=== PATIENT | female | born 1930 | race Caucasian/White ===

== ENCOUNTER → 2016-08-05 | Outpatient (CLI) | payer MEDICARE, BC ==
[2016-08-05 10:53] LABS: ABSOLUTE EOSINOPHILS # (AUTO) 0.2 10^3/uL (0.0-0.6); ABSOLUTE LYMPHOCYTES (AUTO) 0.8 10^3/uL (0.5-4.7); ABSOLUTE MONOCYTES (AUTO) 0.8 10^3/uL (0.1-1.4); ABSOLUTE NEUT (AUTO) 4.7 10^3/uL (1.7-8.2); BASOPHILS % (AUTO) 0.5 % (0-2); EOSINOPHILS % (AUTO) 2.5 % (0-6); HEMATOCRIT 32.8 % (36.0-47.0); HEMOGLOBIN 11.2 g/dL (12.0-15.5); HGB HCT DIFFERENCE 0.8; LYMPHOCYTES % (AUTO) 12.5 % (13-45); MEAN CORPUSCULAR HEMOGLOBIN 30.7 pg (27.0-33.4); MEAN CORPUSCULAR VOLUME 90 fl (80-97); MONOCYTES % (AUTO) 11.8 % (3-13); RED BLOOD COUNT 3.64 10^6/uL (3.72-5.28); RED CELL DISTRIBUTION WIDTH 13.7 % (11.5-14.0); SEGMENTED NEUTROPHILS % (AUTO) 72.7 % (42-78); WHITE BLOOD COUNT 6.5 10^3/uL (4.0-10.5)
[2016-08-05 11:20] LABS: ALANINE AMINOTRANSFERASE 50 U/L (9-52); ALBUMIN 4.1 g/dL (3.5-5.0); ALKALINE PHOSPHATASE 93 U/L (38-126); ANION GAP 8 (5-19); ASPARTATE AMINO TRANSFERASE 54 U/L (14-36); BILIRUBIN,TOTAL 0.5 mg/dL (0.2-1.3); BLOOD UREA NITROGEN 22 mg/dL (7-20); CALCIUM 9.8 mg/dL (8.4-10.2); CARBON DIOXIDE 31 mmol/L (22-30); CHLORIDE 102 mmol/L (98-107); GLUCOSE 107 mg/dL (75-110); POTASSIUM 4.1 mmol/L (3.6-5.0); SODIUM 141.1 mmol/L (137-145); TOTAL PROTEIN 7.1 g/dL (6.3-8.2)
== END ==
LOC: OD 09:57
PROVIDERS: ATTEND Surgery
DX: C50.919 Malignant neoplasm of unspecified site of unspecified female breast (principal)
CPT/HCPCS: 36415; 71020; 80053; 85025

== ENCOUNTER → 2016-08-08 | Outpatient (CLI) | payer MEDICARE, BC | LOC: RAD 13:11 | PROVIDERS: ATTEND Surgery | DX: C50.911 Malignant neoplasm of unspecified site of right female breast (principal) | CPT/HCPCS: 71250; 74176; 82565 ==

== ENCOUNTER → 2016-08-19 | Outpatient (CLI) | payer MEDICARE, BC | LOC: RAD 12:31 | PROVIDERS: ATTEND Specialist | DX: R05 Cough (principal); Z85.3 Personal history of malignant neoplasm of breast; I51.7 Cardiomegaly | CPT/HCPCS: 71020 ==

== ENCOUNTER → 2016-08-21 | Outpatient (CLI) | payer MEDICARE, BC | LOC: RAD 21:01 | PROVIDERS: ATTEND Internal Medicine | DX: C50.411 Malignant neoplasm of upper-outer quadrant of right female breast (principal) | CPT/HCPCS: 78815; A9552 ==

== ENCOUNTER → 2016-09-08 | Outpatient (CLI) | payer MEDICARE, BC | LOC: RAD 09:33 | PROVIDERS: ATTEND Internal Medicine | DX: J18.9 Pneumonia, unspecified organism (principal) | CPT/HCPCS: 71250 ==

== ENCOUNTER 2016-09-16 08:47 | Day surgery (SDC) | payer MEDICARE, BC ==
[2016-09-07 13:02] LABS: HEMATOCRIT 32.2 % (36.0-47.0); HEMOGLOBIN 11.2 g/dL (12.0-15.5); HGB HCT DIFFERENCE 1.4; MEAN CORPUSCULAR HEMOGLOBIN 31.2 pg (27.0-33.4); MEAN CORPUSCULAR HGB CONC 34.9 g/dL (32.0-36.0); MEAN CORPUSCULAR VOLUME 89 fl (80-97); RED CELL DISTRIBUTION WIDTH 13.4 % (11.5-14.0); WHITE BLOOD COUNT 6.2 10^3/uL (4.0-10.5)
[2016-09-07 13:24] LABS: ANION GAP 13 (5-19); BLOOD UREA NITROGEN 29 mg/dL (7-20); CALCIUM 9.8 mg/dL (8.4-10.2); CARBON DIOXIDE 31 mmol/L (22-30); CHLORIDE 99 mmol/L (98-107); GLUCOSE 109 mg/dL (75-110); SODIUM 142.5 mmol/L (137-145)
[2016-09-07 13:26] LABS: POTASSIUM 4.3 mmol/L (3.6-5.0)
--- NOTE | 2016-09-07 20:06 | EKG REPORT ---
SEVERITY:- ABNORMAL ECG - ATRIAL-PACED COMPLEXES : Confirmed by: Elizabeth Duong MD 07-Sep-2016 20:04:43
[~2016-09-16 08:47] MED LIST: ACETAMINOPHEN 325 MG TABLET PO PRN; CEFAZOLIN 1 GM/D5W RTU 1 GM/50 ML RTUPB IV PRN; LIDOCAINE 0.5% INJ-PF (5 MG/ML) 50 ML SDV SUBCUT PRN; LIDOCAINE 2% INJ-PF (20 MG/ML) 10 ML AMPUL ONE; LIDOCAINE 4% TRANSPARENT DRESSING 5 GM KIT TP PRN; NORMAL SALINE 1000 ML (RENAL PATIENTS) IV PRN
[2016-09-16] MEDS ORDERED: METHYLENE BLUE/PF INJ 100 MG/10 ML SDV ONE (09:28)
[2016-09-16] MEDS ORDERED: HYDROMORPHONE HCL INJ/PF 2 MG/ML AMPULE ONE (09:42)
[2016-09-16] MEDS ORDERED: FENTANYL CITRATE INJ/PF 100 MCG/2 ML AMPUL ONE (09:43)
[2016-09-16] MEDS ORDERED: MIDAZOLAM 2 MG/2 ML INJ ONE (09:43)
[2016-09-16] MEDS ORDERED: ACETAMINOPHEN 100 ML IV ONE (09:43)
[2016-09-16] MEDS ORDERED: PROPOFOL INJ 200 MG/20 ML VIAL IV ONE (09:43)
[2016-09-16] MEDS ORDERED: KETAMINE HCL INJ 500 MG/10 ML VIAL ONE (12:36)
[2016-09-16] MEDS ORDERED: METHYLPREDNISOLONE INJ 125 MG/2 ML SDV ONE (12:38)
[2016-09-16] MEDS ORDERED: DIPHENHYDRAMINE HCL 50 MG/ML VIAL IV PRN (14:11)
[2016-09-16] MEDS ORDERED: PROMETHAZINE HCL INJ 25 MG/1 ML VIAL IV PRN (14:11)
[2016-09-16] MEDS ORDERED: FENTANYL CITRATE INJ/PF 100 MCG/2 ML AMPUL IV PRN ×3 (14:11)
[2016-09-16] MEDS ORDERED: MORPHINE SULFATE 10 MG/ML INJ IV PRN (14:11)
[2016-09-16] MEDS ORDERED: ONDANSETRON HCL INJ/PF 4 MG/2 ML SDV IV PRN (16:40)
--- NOTE | 2016-09-16 16:40 | Operative Report ---
Operative Report DATE OF SURGERY: 09/16/16 PREOPERATIVE DIAGNOSIS: Right breast cancer. POSTOPERATIVE DIAGNOSIS: Right Breast cancer OPERATION: Right mastectomy, injection of blue dye for identification of sentinel node, right axillary sentinel node biopsies, completion right axillary dissection. SURGEON: GUSTAVO PERDOMO ANESTHESIA: GA TISSUE REMOVED OR ALTERED: Right mastectomy. Right axillary sentinel nodes 4. Right axillary dissection. COMPLICATIONS: None ESTIMATED BLOOD LOSS: 200 mL INTRAOPERATIVE FINDINGS: For sentinel nodes harvested. 2 of them demonstrating evidence of metastatic disease by touch prep. PROCEDURE: Informed consent was obtained. Patient had underwent lympho-scintigraphy identification of right axillary sentinel node. She was brought to the operating room placed on the operating table in supine position. After satisfactory induction of general anesthesia, patient's right breast and axilla were prepped and draped in usual sterile fashion. 3 mL of blue dye was injected at the periareolar region. And the breast was massaged for 5 minutes. The cancer resided at the lower inner aspect of the right breast. Ellipse of skin was taken along with the nipple areolar complex taking a wide skin excision overlying the mass medially. Inferior flaps were developed first taking great care to go widely away from the tumor. Superior flaps were then developed followed by lateral flaps extending to the latissimus. The breast was taken off of the pectoralis along with the pectoralis fascia again taking great care to stay deep to the mass that laid medially. The true axilla was entered. Using visualization and the neoprobe for sentinel nodes were identified. The first node was small but it was hot and blue with an in vivo count of 10,427 and ex vivo count of 10,117. The second node was enlarged and hot and blue in vivo count was 7747 with ex vivo count of 9598. 2 other semi- hot nodes were harvested but these were not blue. Node #3 in vivo count was 1000 with an ex vivo count of 1184. Node #4 was 2328 in vivo with 3484 ex vivo count. All of these nodes were submitted to pathology touch prep demonstrated that 2 of these nodes had evidence of metastatic disease. With this finding, right axillary lymph node dissection was performed. Level I and level II nodes were harvested. Critical structures were identified: The axillary vein, the long thoracic nerve and the thoracodorsal nerves. All of the structures were protected during the dissection. Hemostasis appeared excellent. The specimen was submitted to pathology. The mastectomy specimen was oriented with a short stitch marking the superior border long stitch marking the lateral border. Palpation revealed that I had obtained the good gross margins. The axillary dissection was submitted separately. The operative field was irrigated with sterile water. 2 Ky-Freire drains were placed one at the mastectomy site and one at the axillary dissection site both of them exiting at the right lateral lower flap. These drains were sutured in place. Sponge needle instrument counts were all correct. The wound was then closed with the interrupted deep dermal Vicryl sutures followed by staple closure of the skin. Patient tolerated procedure well with no apparent complications and was taken to the recovery area in stable condition.
[2016-09-16] MEDS ORDERED: MELATONIN PO PRN (16:43)
[2016-09-16] MEDS ORDERED: PYRIDOXINE HCL PO PRN (16:43)
[2016-09-16] MEDS ORDERED: PREDNISONE 10 MG PO PRN (16:43)
[2016-09-16] MEDS ORDERED: ALOE VERA PO SCH (18:00)
[2016-09-16] MEDS ORDERED: OMEPRAZOLE PO SCH (18:00)
[2016-09-16] MEDS: OXYCODONE-ACETAMINOPHEN 5-325 MG TABLET PO PRN (21:41)
[2016-09-16] MEDS ORDERED: LANSOPRAZOLE 30 MG TAB.RAP.DR PO SCH (22:00)
[2016-09-17 05:53] LABS: HEMATOCRIT 33.1 % (36.0-47.0); HEMOGLOBIN 11.3 g/dL (12.0-15.5); HGB HCT DIFFERENCE 0.8; MEAN CORPUSCULAR HEMOGLOBIN 30.3 pg (27.0-33.4); MEAN CORPUSCULAR VOLUME 89 fl (80-97); RED BLOOD COUNT 3.71 10^6/uL (3.72-5.28); RED CELL DISTRIBUTION WIDTH 13.7 % (11.5-14.0); WHITE BLOOD COUNT 13.8 10^3/uL (4.0-10.5)
[2016-09-17] MEDS: OXYCODONE-ACETAMINOPHEN 5-325 MG TABLET PO PRN ×2 (06:40→10:59)
[2016-09-17] MEDS ORDERED: LANSOPRAZOLE 15 MG TAB.RAP.DR PO SCH (08:00)
--- NOTE | 2016-09-17 08:24 | PDOC PROGRESS REPORT ---
Subjective Progress Note for:: 09/17/16 Subjective:: Feels well no complaints. Physical Exam Vital Signs: Temp Pulse Resp BP Pulse Ox 97.3 F 60 16 121/88 H 97 09/17/16 01:50 09/17/16 01:50 09/17/16 01:50 09/17/16 01:50 09/17/16 01:50 Intake & Output 09/16/16 09/17/16 09/18/16 06:59 06:59 06:59 Intake Total 3450 Output Total 1915 Balance 1535 Weight 68.3 kg General appearance: PRESENT: no acute distress, cooperative Respiratory exam: PRESENT: clear to auscultation shaista, other - Mastectomy site the without significant swelling pink with no evidence of ischemia. Ky- Freire drain output has blood-tinged the fluid. Cardiovascular exam: PRESENT: RRR GI/Abdominal exam: PRESENT: other Results Laboratory Results: 09/17/16 04:10 09/16/16 09:20 09/16/16 09/17/16 09:20 04:10 WBC 13.8 H RBC 3.71 L Hgb 11.3 L Hct 33.1 L MCV 89 MCH 30.3 MCHC 34.0 RDW 13.7 Plt Count 201 Potassium 4.4 Impressions: Lymph Scan Nuclear Medicine 09/16/16 10:00 IMPRESSION: ADMINISTRATION OF RADIOPHARMACEUTICAL FOR SENTINEL LYMPH NODE EVALUATION. Assessment & Plan - Diagnosis (1) Breast cancer, right breast Qualifiers: Patient sex: female Is this a current diagnosis for this admission?: YesPlan: Status post right modified radical mastectomy. Patient doing well. Will discharge the patient home.
--- NOTE | 2016-09-17 08:53 | DISCHARGE SUMMARY E ---
Discharge Summary NAME: DIANNE SINGH : 1930 AGE: 86Y ADMITTED: 09/16/2016 DISCHARGED: 09/17/2016 DISCHARGE DIAGNOSIS: Right breast cancer. PROCEDURES PERFORMED DURING HOSPITALIZATION: 1. Injection of blue dye for identification of sentinel node. 2. Right mastectomy. 3. Right axillary sentinel node biopsy. 4. Right axillary dissection. All performed on 09/16/2016. HOSPITAL COURSE: Patient underwent the above-mentioned procedures. She did well postoperatively. She was tolerating a diet well. Her mastectomy site looked good. Patient has now been discharged to home in good condition. She will follow up with me next week. Drain instructions were given to the patient. She is to stay active. She is to use her right arm as normally, but keep it elevated when at rest DISCHARGE MEDICATIONS: To resume her home medication with additional medication of Percocet 1 p.o. q.4 h. p.r.n. pain. DICTATING PHYSICIAN: JULIAN PERDOMO M.D. [id number] Y#: [id number] ID: [id number] JOB#: [id number] ACCT: [id number] cc:JULIAN PERDOMO M.D. >
[2016-09-17 09:25] VITALS: BP 154/67
[2016-09-17] MEDS ORDERED: HYDROCHLOROTHIAZIDE 25 MG TABLET PO SCH (10:00)
[2016-09-17] MEDS ORDERED: FUROSEMIDE 20 MG TABLET PO SCH (10:00)
[2016-09-17] MEDS ORDERED: CHLORPHENIRAMINE MALEATE 4 MG TABLET PO SCH (10:00)
[2016-09-17] MEDS ORDERED: ASPIRIN 81 MG TABLET, CHEWABLE PO SCH (10:00)
[2016-09-17] MEDS ORDERED: BISOPROLOL FUMARATE PO SCH (10:00)
[2016-09-17] MEDS ORDERED: (PENDING PHARMACY ID) (Ubidecarenone [Coq-10] 200 MG) PO SCH (10:00)
[2016-09-17] MEDS ORDERED: ATENOLOL 50 MG TABLET PO SCH (10:00)
[2016-09-17] MEDS ORDERED: HCTZ PO SCH (10:00)
== END 2016-09-17 11:38 | disposition home or self-care (01) ==
LOC: OROUT 08:47 → 4N 17:41 → OROUT 09-17 11:38
PROVIDERS: ATTEND Surgery
PROC: 07B50ZX Excision of Right Axillary Lymphatic, Open Approach, Diagnostic (ICD-10-PCS; 2016-09-16)
PROC: 0HTT0ZZ Resection of Right Breast, Open Approach (ICD-10-PCS; principal; 2016-09-16 11:00)
DX: C50.311 Malignant neoplasm of lower-inner quadrant of right female breast (principal); I25.10 Atherosclerotic heart disease of native coronary artery without angina pectoris; I13.0 Hypertensive heart and chronic kidney disease with heart failure and stage 1 through stage 4 chronic kidney disease, or unspecified chronic kidney disease; I50.9 Heart failure, unspecified; N18.9 Chronic kidney disease, unspecified; Z95.0 Presence of cardiac pacemaker; Z87.891 Personal history of nicotine dependence; Z79.899 Other long term (current) drug therapy; Z79.82 Long term (current) use of aspirin; Z88.8 Allergy status to other drugs, medicaments and biological substances; Z88.1 Allergy status to other antibiotic agents; Z98.61 Coronary angioplasty status; Z85.828 Personal history of other malignant neoplasm of skin
CPT/HCPCS: 93005; 36415 ×2; 84132; 85027 ×2; 80048; 88307 ×2; 78195; 93010; 97166; 19307; A9520; A9270 ×6; J0690; J3010; J3490 ×3; Q9968; J2930; J1170; J2704; J0131; G8987; G8988; G8989; 00400; J2250

== ENCOUNTER → 2017-01-26 | Outpatient (CLI) | payer MEDICARE, BC ==
[2017-01-26 15:17] LABS: ABSOLUTE EOSINOPHILS # (AUTO) 0.2 10^3/uL (0.0-0.6); ABSOLUTE LYMPHOCYTES (AUTO) 1.5 10^3/uL (0.5-4.7); ABSOLUTE MONOCYTES (AUTO) 0.5 10^3/uL (0.1-1.4); ABSOLUTE NEUT (AUTO) 3.3 10^3/uL (1.7-8.2); BASOPHILS % (AUTO) 0.6 % (0-2); EOSINOPHILS % (AUTO) 3.5 % (0-6); HEMATOCRIT 34.5 % (36.0-47.0); HEMOGLOBIN 11.7 g/dL (12.0-15.5); HGB HCT DIFFERENCE 0.6; LYMPHOCYTES % (AUTO) 27.1 % (13-45); MEAN CORPUSCULAR HGB CONC 33.8 g/dL (32.0-36.0); MEAN CORPUSCULAR VOLUME 92 fl (80-97); MONOCYTES % (AUTO) 8.4 % (3-13); RED BLOOD COUNT 3.76 10^6/uL (3.72-5.28); RED CELL DISTRIBUTION WIDTH 13.3 % (11.5-14.0); SEGMENTED NEUTROPHILS % (AUTO) 60.4 % (42-78); WHITE BLOOD COUNT 5.5 10^3/uL (4.0-10.5)
[2017-01-26 15:37] LABS: ALANINE AMINOTRANSFERASE 32 U/L (9-52); ALBUMIN 4.3 g/dL (3.5-5.0); ALKALINE PHOSPHATASE 106 U/L (38-126); ANION GAP 11 (5-19); ASPARTATE AMINO TRANSFERASE 35 U/L (14-36); BILIRUBIN,DIRECT 0.4 mg/dL (0.0-0.4); BILIRUBIN,TOTAL 0.4 mg/dL (0.2-1.3); BLOOD UREA NITROGEN 32 mg/dL (7-20); CALCIUM 9.6 mg/dL (8.4-10.2); CARBON DIOXIDE 29 mmol/L (22-30); CHLORIDE 103 mmol/L (98-107); CREATININE RESULT 1.43 mg/dL (0.52-1.25); GLUCOSE 93 mg/dL (75-110); SODIUM 143.3 mmol/L (137-145); TOTAL PROTEIN 7.3 g/dL (6.3-8.2)
[2017-01-26 16:15] LABS: APPEARANCE,URINE SLIGHTLY-CLOUDY; BILIRUBIN,URINE NEGATIVE (NEGATIVE); GLUCOSE, URINE NEGATIVE (NEGATIVE); KETONES,URINE NEGATIVE (NEGATIVE); LEUKOCYTE ESTERASE,URINE SMALL (NEGATIVE); NITRITE,URINE NEGATIVE (NEGATIVE); PROTEIN,URINE NEGATIVE (NEGATIVE); URINE SPECIFIC GRAVITY 1.019; UROBILINOGEN,URINE NEGATIVE mg/dL (<2.0)
== END ==
LOC: OD 14:20
PROVIDERS: ATTEND Internal Medicine
DX: G93.40 Encephalopathy, unspecified (principal)
CPT/HCPCS: 36415; 80053; 81001; 84550; 85025

== ENCOUNTER 2017-04-25 13:17 | Observation (INO) | payer MEDICARE, BC ==
[2017-04-25 15:35] LABS: HEMATOCRIT 36.6 % (36.0-47.0); HEMOGLOBIN 12.8 g/dL (12.0-15.5); HGB HCT DIFFERENCE 1.8; MEAN CORPUSCULAR HEMOGLOBIN 31.1 pg (27.0-33.4); MEAN CORPUSCULAR HGB CONC 34.9 g/dL (32.0-36.0); MEAN CORPUSCULAR VOLUME 89 fl (80-97); RED CELL DISTRIBUTION WIDTH 13.6 % (11.5-14.0); WHITE BLOOD COUNT 6.4 10^3/uL (4.0-10.5)
[2017-04-25 15:38] LABS: ALANINE AMINOTRANSFERASE 45 U/L (9-52); ALBUMIN 4.5 g/dL (3.5-5.0); ALKALINE PHOSPHATASE 86 U/L (38-126); ANION GAP 12 (5-19); ASPARTATE AMINO TRANSFERASE 38 U/L (14-36); BILIRUBIN,DIRECT 0.3 mg/dL (0.0-0.4); BILIRUBIN,TOTAL 0.5 mg/dL (0.2-1.3); BLOOD UREA NITROGEN 29 mg/dL (7-20); CARBON DIOXIDE 30 mmol/L (22-30); CHLORIDE 100 mmol/L (98-107); CREATINE KINASE 55 U/L (30-135); GLUCOSE 90 mg/dL (75-110); POTASSIUM 4.4 mmol/L (3.6-5.0); SODIUM 141.9 mmol/L (137-145); TOTAL PROTEIN 7.2 g/dL (6.3-8.2)
[2017-04-25 15:50] LABS: CREATINE KINASE MB 0.94 ng/mL (<4.55)
[2017-04-25 15:54] LABS: TROPONIN I < 0.012 ng/mL
[2017-04-25] MEDS ORDERED: INFLUENZA ADLT QUAD (36MOS+) 2017-18 VAC 0.5 ML SYR IM PRN (18:00)
[2017-04-25] MEDS: NORMAL SALINE 1000 ML 1,000 ML IV PRN (18:57)
[2017-04-25] MEDS ORDERED: ONDANSETRON HCL INJ/PF 4 MG/2 ML SDV IV PRN (20:01)
--- NOTE | 2017-04-25 21:40 | EKG REPORT ---
SEVERITY:- ABNORMAL ECG - ATRIAL-PACED COMPLEXES LVH BY VOLTAGE PROBABLE INFERIOR INFARCT, OLD PROBABLE POSTERIOR INFARCT : Confirmed by: Samantha Lu 25-Apr-2017 21:40:12
[2017-04-25] MEDS ORDERED: HYDROCHLOROTHIAZIDE PO SCH (22:00)
[2017-04-25] MEDS ORDERED: (PENDING PHARMACY ID) (Calcium Carbonate/Vitamin D3 [Calcium 600 + Vit D 400 Tablet] 1 TAB PO SCH (22:00)
[2017-04-25] MEDS ORDERED: MAGNESIUM OXIDE 400 MG TABLET PO SCH (22:00)
[2017-04-25] MEDS ORDERED: (PENDING PHARMACY ID) (Memantine Hcl/Donepezil Hcl [Namzaric 28 Mg-10 Mg Capsule] 1 CAP) PO SCH (22:00)
[2017-04-25] MEDS ORDERED: BISOPROLOL PO SCH (22:00)
[2017-04-25] MEDS ORDERED: [UNRECOGNIZED DRUG - OTHER] PO SCH (22:00)
[2017-04-25] MEDS ORDERED: CALCIUM CARBONATE 250 MG/VITAMIN D3 125 UNIT TABLET PO ONE (22:45)
[2017-04-25 23:21] LABS: CREATINE KINASE MB 0.74 ng/mL (<4.55)
[2017-04-25 23:27] LABS: APPEARANCE,URINE CLEAR; BILIRUBIN,URINE NEGATIVE (NEGATIVE); GLUCOSE, URINE NEGATIVE (NEGATIVE); KETONES,URINE NEGATIVE (NEGATIVE); LEUKOCYTE ESTERASE,URINE NEGATIVE (NEGATIVE); NITRITE,URINE NEGATIVE (NEGATIVE); PROTEIN,URINE NEGATIVE (NEGATIVE); URINE SPECIFIC GRAVITY 1.005; UROBILINOGEN,URINE NEGATIVE mg/dL (<2.0)
[2017-04-25 23:30] LABS: TROPONIN I < 0.012 ng/mL
[2017-04-25 23:35] LABS: RBC,URINE RARE /HPF; WBC,URINE RARE /HPF
[2017-04-26 07:48] LABS: CREATINE KINASE MB 0.64 ng/mL (<4.55)
[2017-04-26 07:49] LABS: TROPONIN I < 0.012 ng/mL
--- NOTE | 2017-04-26 08:17 | RADIOLOGY REPORT (SQ) ---
EXAM DESCRIPTION: CT ABD/PELVIS NO ORAL OR IV COMPLETED DATE/TIME: 04/25/2017 9:16 pm REASON FOR STUDY: CHEST PAIN, ABD PAIN,WEAKNESS,MALAISE R53.81 OTHER MALAISE COMPARISON: 08/08/2016. PET-CT from August. CT chest from August. TECHNIQUE: CT scan of the abdomen and pelvis performed without intravenous or oral contrast. Images reviewed with lung, soft tissue, and bone windows. Reconstructed coronal and sagittal MPR images revi ewed. All images stored on PACS. All CT scanners at this facility use dose modulation, iterative reconstruction, and/or weight based d osing when appropriate to reduce radiation dose to as low as reasonably achievable (ALARA). [facility]: Dose Right [facility]: CareDose [facility]: Dose Right [facility]: Teradose 4D [facility]: [employer] RADIATION DOSE: mGy. LIMITATIONS: None. FINDINGS: LOWER CHEST: Status post right mastectomy. Lower chest otherwise unremarkable. NON-CONTRASTED LIVER, SPLEEN, ADRENALS: Numerous calcified granulomas. No adrenal mass. PANCREAS: No masses. No peripancreatic inflammatory changes. GALLBLADDER: Surgically absent. RIGHT KIDNEY AND URETER: No solid masses. No significant calcification. No hydronephrosis or hydroure ter. LEFT KIDNEY AND URETER: No solid masses. No significant calcification. No hydronephrosis or hydrouret er. AORTA AND RETROPERITONEUM: Densely calcified. No aortic aneurysm or retroperitoneal mass. BOWEL AND PERITONEAL CAVITY: Distal colonic diverticulosis. No inflammatory changes. No small bowel obstruction. APPENDIX: Normal. PELVIS, BLADDER, AND ABDOMINAL WALL:3.5 cm left ovarian cyst, chronic. Minimal septation or adjacent smaller cyst. Bladder unremarkable. No abdominal wall mass. No hernia. BONES: Osteopenic. OTHER: No other significant finding. IMPRESSION: 1. No acute or suspicious abdominopelvic abnormality. 2. Incidental findings include e vidence of previous granulomatous disease, atherosclerosis, diverticulosis without active inflammator y change. 3. Left ovarian lesion looks like a a minimally septated cyst, chronic. This should be f urther correlated with pelvic ultrasound in a postmenopausal patient, as recommended below. Followup of asymptomatic adnexal cysts found on CT or MRI in postmenopausal patients *Probably benign cyst > 1 cm: US Note: If cyst is clinically symptomatic or otherwise concerning, other followup may be necessary. Menopause is considered age 50 by radiologist unless date of last period is known. Based on Managing Incidental Findings on Abdominal and Pelvic CT and MRI, Part 1: White Paper of the ACR Incidental Fi ndings Committee II on Adnexal Findings J Am Sarah Radiol 2013;10:675-681. TECHNICAL DOCUMENTATION: JOB ID: [id number] Quality ID # [id number]: Final reports with documentation of one or more dose reduction techniques (e.g., Au tomated exposure control, adjustment of the mA and/or kV according to patient size, use of iterative reconstruction technique) 2010 [employer]- All Rights Reserved
--- NOTE | 2017-04-26 08:24 | RADIOLOGY REPORT (SQ) ---
EXAM DESCRIPTION: CHEST PA/LAT COMPLETED DATE/TIME: 04/25/2017 9:32 pm REASON FOR STUDY: CHEST PAIN COMPARISON: 08/19/2016. TECHNIQUE: Frontal and lateral radiographic views of the chest acquired. NUMBER OF VIEWS: Two view. LIMITATIONS: None. FINDINGS: LUNGS AND PLEURA: No opacities, masses or pneumothorax. No pleural effusion. MEDIASTINUM AND HILAR STRUCTURES: No masses or contour abnormalities. HEART AND VASCULAR STRUCTURES: Heart normal size. No evidence for failure. BONES: Osteopenia. Mild kyphosis without fracture evident. HARDWARE: Left transvenous pacer with 2 leads grossly intact to the right heart. OTHER: Status post right mastectomy with axillary dissection. IMPRESSION: NO SIGNIFICANT RADIOGRAPHIC FINDING IN THE CHEST. TECHNICAL DOCUMENTATION: JOB ID: [id number] [employer]- All Rights Reserved
[2017-04-26] MEDS ORDERED: CALCIUM CARBONATE 250 MG/VITAMIN D3 125 UNIT TABLET PO SCH (10:00)
[2017-04-26] MEDS: NORMAL SALINE 1000 ML 1,000 ML IV PRN (10:49)
[2017-04-26] MEDS ORDERED: ATENOLOL 50 MG TABLET PO SCH (11:00)
[2017-04-26] MEDS ORDERED: HYDROCHLOROTHIAZIDE 12.5 MG CAPSULE PO SCH (11:00)
[2017-04-26 16:03] VITALS: BP 119/58
--- NOTE | 2017-04-26 16:27 | PDOC H&P ---
History of Present Illness Admission Date/PCP: 04/25/17 13:17 ARIANNA SUAREZ MD History of Present Illness: DIANNE SINGH is a 86 year old female, she came to the office with family for evaluation of many symptoms including fatigue, malaise, abdominal discomfort, generalized weakness, there was no exact unifying diagnosis in the office, she was admitted directly from the office to the hospital for evaluation and management of her condition. The hemogram, the chemistry, electrolytes, urinalysis, the CAT scan of the abdomen and pelvis without contrast , came back negative. Family stated that the last time she felt this way she had a malfunctioning pacemaker, the pacemaker drinking water technician was called in for pacemaker check, the patient was checked by [employer] and it was found to be in good working condition. She also stated that her symptoms started after she initiated namzeric, the medication for Alzheimer disease, she was recently prescribed this medication in the office when she came in for evaluation of memory loss, she was given samples in the office to try. She said since she took the medication, she has had bad dreams. Family said she has not been eating in the last few days, she does feel unwell Past Medical History Cardiac Medical History: Reports: Hypertension, Other - Chronic diastolic dysfunction of left ventricle Denies: Myocardial Infarction Musculoskeltal Medical History: Reports: Arthritis - generalized Hematology: Reports: Anemia Past Surgical History Past Surgical History: Reports: Cardiac Catheterization - Cardiac stent 2004, Cholecystectomy Social History Smoking Status: Never Smoker Frequency of Alcohol Use: None Hx Recreational Drug Use: No Drugs: None Hx Prescription Drug Abuse: No Family History Family History: None Parental Family History Reviewed: Yes Children Family History Reviewed: Yes Sibling(s) Family History Reviewed.: Yes Medication/Allergy Home Medications: Aloe Vera 470mg Cap 470 mg PO DAILY 04/25/17 Aspirin [Ecotrin 81 mg EC Tablet] 81 mg PO DAILY 04/25/17 Bisoprolol/Hydrochlorothiazide [Bisoprolol-Hctz 10-6.25 mg Tab] 1 tab PO DAILY 04/25/17 Calcium Carbonate/Vitamin D3 [Calcium 600 + Vit D 400 Tablet] 1 tab PO DAILY 10/05 Clotrimazole/Betamethasone Dip [Lotrisone Cream] 1 applic TOP BID 04/25/17 Cyanocobalamin (Vitamin B-12) [Vitamin B-12] 500 mcg PO DAILY 04/25/17 Furosemide [Lasix 20 mg Tablet] 20 mg PO BID 04/25/17 Magnesium Oxide [Mag-Ox 400 mg Tablet] 400 mg PO BID 04/25/17 Melatonin 1 mg PO HSP PRN 04/25/17 [place]-3 Fatty Acids/Fish Oil [[place]-3 1,000 mg Softgel] 1 cap PO DAILY 04/25/17 Omeprazole 20 mg PO BID 04/25/17 Simvastatin [Zocor 40 mg Tablet] 40 mg PO QPM 04/25/17 Allergies/Adverse Reactions: clopidogrel bisulfate [From Plavix] Allergy (Severe, Verified 09/07/16 10:57) Hives levofloxacin Allergy (Verified 09/07/16 10:57) Review of Systems Constitutional: PRESENT: fatigue, weakness Eyes: ABSENT: visual disturbances Ears: ABSENT: hearing changes Cardiovascular: ABSENT: chest pain, dyspnea on exertion, edema, orthropnea, palpitations Respiratory: ABSENT: cough, hemoptysis Gastrointestinal: PRESENT: abdominal pain. ABSENT: as per HPI, bloating, coffee ground emesis, constipation, diarrhea, dysphagia, heartburn, hematemesis , hematochezia, melena, nausea, vomiting, other Genitourinary: ABSENT: dysuria, hematuria Musculoskeletal: ABSENT: joint swelling Integumentary: ABSENT: rash, wounds Neurological: ABSENT: abnormal gait, abnormal speech, confusion, dizziness, focal weakness, syncope Psychiatric: ABSENT: anxiety, depression, homidical ideation, suicidal ideation Endocrine: ABSENT: cold intolerance, heat intolerance, menstrual abnormalities, polydipsia, polyuria Hematologic/Lymphatic: ABSENT: easy bleeding, easy bruising, lymphadenopathy Physical Exam Vital Signs: Temp Pulse Resp BP Pulse Ox 98.3 F 62 18 119/58 L 95 04/26/17 15:56 04/26/17 15:56 04/26/17 15:56 04/26/17 15:56 04/26/17 15:56 Intake & Output 04/25/17 04/26/17 04/27/17 06:59 06:59 06:59 Intake Total 797 Output Total 850 Balance -53 Weight 68.9 kg General appearance: PRESENT: no acute distress, well-developed, well-nourished Head exam: PRESENT: atraumatic, normocephalic Eye exam: PRESENT: conjunctiva pink, EOMI, PERRLA Ear exam: PRESENT: normal external ear exam Mouth exam: PRESENT: moist, tongue midline Neck exam: PRESENT: full ROM Respiratory exam: PRESENT: clear to auscultation shaista Cardiovascular exam: PRESENT: RRR, +S1, +S2 Pulses: PRESENT: normal dorsalis pedis pul, +2 pedal pulses bilateral Vascular exam: PRESENT: normal capillary refill GI/Abdominal exam: PRESENT: normal bowel sounds, soft Rectal exam: PRESENT: deferred Neurological exam: PRESENT: alert, awake, oriented to person, oriented to place , oriented to time, oriented to situation, CN II-XII grossly intact Psychiatric exam: PRESENT: appropriate affect, normal mood Skin exam: PRESENT: dry, intact, warm Results Laboratory Results: 04/25/17 15:08 04/25/17 15:08 04/25/17 23:02 Urine Color YELLOW Urine Appearance CLEAR Urine pH 7.0 Ur Specific [place] 1.005 Urine Protein NEGATIVE Urine Glucose (UA) NEGATIVE Urine Ketones NEGATIVE Urine Blood NEGATIVE Urine Nitrite NEGATIVE Ur Leukocyte Esterase NEGATIVE Ur Squamous Epith Cells RARE 04/25/17 04/25/17 04/25/17 15:08 15:08 22:30 Creatine Kinase 55 42 CK-MB (CK-2) 0.94 Troponin I < 0.012 04/25/17 04/26/17 04/26/17 22:30 07:05 07:05 Creatine Kinase 34 CK-MB (CK-2) 0.74 0.64 Troponin I < 0.012 < 0.012 Impressions: Abdomen/Pelvis CT 04/25/17 14:36 IMPRESSION: 1. No acute or suspicious abdominopelvic abnormality. 2. Incidental findings include evidence of previous granulomatous disease, atherosclerosis, diverticulosis without active inflammatory change. 3. Left ovarian lesion looks like a a minimally septated cyst, chronic. This should be further correlated with pelvic ultrasound in a postmenopausal patient, as recommended below. Followup of asymptomatic adnexal cysts found on CT or MRI in postmenopausal patients *Probably benign cyst > 1 cm: US Note: If cyst is clinically symptomatic or otherwise concerning, other followup may be necessary. Menopause is considered age 50 by radiologist unless date of last period is known. Based on Managing Incidental Findings on Abdominal and Pelvic CT and MRI , Part 1: White Paper of the ACR Incidental Findings Committee II on Adnexal Findings J Am Sarah Radiol 2013;10:675-681. Chest X-Ray 04/25/17 14:36 IMPRESSION: NO SIGNIFICANT RADIOGRAPHIC FINDING IN THE CHEST. Assessment & Plan - Diagnosis (1) Malaise Is this a current diagnosis for this admission?: Yes Plan: The exact etiology of the malaise is not clear, she is treated with IV fluid, all the the evaluations are negative (2) Abdominal pain Qualifiers: Abdominal location: unspecified location Qualified Code(s): R10.9 - Unspecified abdominal pain Is this a current diagnosis for this admission?: Yes (3) Anorexia Is this a current diagnosis for this admission?: Yes
--- NOTE | 2017-04-26 16:35 | PDOC DISCHARGE SUMMARY ---
General - Admit/Disc Date/PCP Admission Date/Primary Care Provider: 04/25/17 13:17 ARIANNA SUAREZ MD Discharge Date: 04/26/17 - Discharge Diagnosis (1) Malaise Is this a current diagnosis for this admission?: Yes (2) Abdominal pain Is this a current diagnosis for this admission?: Yes (3) Anorexia Is this a current diagnosis for this admission?: Yes - Additional Information Discharge Diet: As Tolerated, Regular Discharge Activity: Balance Activity w/Rest Home Medications: Aloe Vera 470mg Cap 470 mg PO DAILY 04/25/17 Aspirin [Ecotrin 81 mg EC Tablet] 81 mg PO DAILY 04/25/17 Bisoprolol/Hydrochlorothiazide [Bisoprolol-Hctz 10-6.25 mg Tab] 1 tab PO DAILY 04/25/17 Calcium Carbonate/Vitamin D3 [Calcium 600 + Vit D 400 Tablet] 1 tab PO DAILY 10/05 Clotrimazole/Betamethasone Dip [Lotrisone Cream] 1 applic TOP BID 04/25/17 Cyanocobalamin (Vitamin B-12) [Vitamin B-12] 500 mcg PO DAILY 04/25/17 Furosemide [Lasix 20 mg Tablet] 20 mg PO BID 04/25/17 Magnesium Oxide [Mag-Ox 400 mg Tablet] 400 mg PO BID 04/25/17 Melatonin 1 mg PO HSP PRN 04/25/17 [place]-3 Fatty Acids/Fish Oil [[place]-3 1,000 mg Softgel] 1 cap PO DAILY 04/25/17 Omeprazole 20 mg PO BID 04/25/17 Simvastatin [Zocor 40 mg Tablet] 40 mg PO QPM 04/25/17 History of Present Illness History of Present Illness: DIANNE SINGH is a 86 year old female, she came to the office with family for evaluation of many symptoms including fatigue, malaise, abdominal discomfort, generalized weakness, there was no exact unifying diagnosis in the office, she was admitted directly from the office to the hospital for evaluation and management of her condition. The hemogram, the chemistry, electrolytes, urinalysis, the CAT scan of the abdomen and pelvis without contrast , came back negative. Family stated that the last time she felt this way she had a malfunctioning pacemaker, the pacemaker ct technician was called in for pacemaker check, the patient was checked by [employer] and it was found to be in good working condition. She also stated that her symptoms started after she initiated namzeric, the medication for Alzheimer disease, she was recently prescribed this medication in the office when she came in for evaluation of memory loss, she was given samples in the office to try. She said since she took the medication, she has had bad dreams. Family said she has not been eating in the last few days, she does feel unwell Hospital Course Hospital Course: She was admitted yesterday for the management of nonspecific complaints of malaise, abdominal pain, she was treated with IV fluids, she felt better she is eating more compare to the last few days ,she also had a pacemaker check, this was found to be in good working condition Physical Exam Vital Signs: Temp Pulse Resp BP Pulse Ox 98.3 F 62 18 119/58 L 95 04/26/17 15:56 04/26/17 15:56 04/26/17 15:56 04/26/17 15:56 04/26/17 15:56 Intake & Output 04/25/17 04/26/17 04/27/17 06:59 06:59 06:59 Intake Total 797 Output Total 850 Balance -53 Weight 68.9 kg General appearance: PRESENT: no acute distress, well-developed, well-nourished Head exam: PRESENT: atraumatic, normocephalic Eye exam: PRESENT: conjunctiva pink, EOMI, PERRLA Ear exam: PRESENT: normal external ear exam Mouth exam: PRESENT: moist, tongue midline Neck exam: PRESENT: full ROM Respiratory exam: PRESENT: clear to auscultation shaista Cardiovascular exam: PRESENT: RRR, +S1, +S2 Pulses: PRESENT: normal dorsalis pedis pul, +2 pedal pulses bilateral Vascular exam: PRESENT: normal capillary refill GI/Abdominal exam: PRESENT: normal bowel sounds, soft Rectal exam: PRESENT: deferred Neurological exam: PRESENT: alert, awake, oriented to person, oriented to place , oriented to time, oriented to situation, CN II-XII grossly intact Psychiatric exam: PRESENT: appropriate affect, normal mood Skin exam: PRESENT: dry, intact, warm Results Laboratory Results: 04/25/17 15:08 04/25/17 15:08 04/25/17 23:02 Urine Color YELLOW Urine Appearance CLEAR Urine pH 7.0 Ur Specific [place] 1.005 Urine Protein NEGATIVE Urine Glucose (UA) NEGATIVE Urine Ketones NEGATIVE Urine Blood NEGATIVE Urine Nitrite NEGATIVE Ur Leukocyte Esterase NEGATIVE Ur Squamous Epith Cells RARE 04/25/17 04/25/17 04/25/17 15:08 15:08 22:30 Creatine Kinase 55 42 CK-MB (CK-2) 0.94 Troponin I < 0.012 04/25/17 04/26/17 04/26/17 22:30 07:05 07:05 Creatine Kinase 34 CK-MB (CK-2) 0.74 0.64 Troponin I < 0.012 < 0.012 Impressions: Abdomen/Pelvis CT 04/25/17 14:36 IMPRESSION: 1. No acute or suspicious abdominopelvic abnormality. 2. Incidental findings include evidence of previous granulomatous disease, atherosclerosis, diverticulosis without active inflammatory change. 3. Left ovarian lesion looks like a a minimally septated cyst, chronic. This should be further correlated with pelvic ultrasound in a postmenopausal patient, as recommended below. Followup of asymptomatic adnexal cysts found on CT or MRI in postmenopausal patients *Probably benign cyst > 1 cm: US Note: If cyst is clinically symptomatic or otherwise concerning, other followup may be necessary. Menopause is considered age 50 by radiologist unless date of last period is known. Based on Managing Incidental Findings on Abdominal and Pelvic CT and MRI , Part 1: White Paper of the ACR Incidental Findings Committee II on Adnexal Findings J Am Sarah Radiol 2013;10:675-681. Chest X-Ray 04/25/17 14:36 IMPRESSION: NO SIGNIFICANT RADIOGRAPHIC FINDING IN THE CHEST.
--- NOTE | 2017-04-27 10:56 | Physician Advisory Note ---
Physician Advisor ProgressNote .: Pursuant to the plan for [facility], I have reviewed the medical record for this patient. Physician Advisor Statement: Please consider documentin. Location & most likely cause of the acute abd pain 2. Most likely cause of the malaise & anorexia Note: Per [employer], Namzaric side effects can include anorexia, N/V/D, abd pain, dizziness, insomnia, depression, somnolence .... Thanks! CK
== END 2017-04-26 16:30 | disposition home or self-care (01) ==
LOC: 4S 13:17
PROVIDERS: ADMIT Internal Medicine; ATTEND Internal Medicine
PROC: 4B02XSZ Measurement of Cardiac Pacemaker, External Approach (ICD-10-PCS; principal; 2017-04-25)
PROC: 3E0234Z Introduction of Serum, Toxoid and Vaccine into Muscle, Percutaneous Approach (ICD-10-PCS; 2017-04-26)
DX: R53.81 Other malaise (principal); R10.9 Unspecified abdominal pain; R63.0 Anorexia; R53.83 Other fatigue; R53.1 Weakness; I25.10 Atherosclerotic heart disease of native coronary artery without angina pectoris; I11.0 Hypertensive heart disease with heart failure; I50.32 Chronic diastolic (congestive) heart failure; Z68.30 Body mass index [BMI] 30.0-30.9, adult; Z79.82 Long term (current) use of aspirin; Z79.899 Other long term (current) drug therapy; Z45.018 Encounter for adjustment and management of other part of cardiac pacemaker; Z95.5 Presence of coronary angioplasty implant and graft; Z90.49 Acquired absence of other specified parts of digestive tract; Z23 Encounter for immunization
CPT/HCPCS: 36415 ×2; 87040; 87086; 82553 ×2; 82550 ×2; 85027; 80076; 80048; 81001; 84484 ×2; 71020; 74176; 90686; 93005; 93010; 93288; A9270 ×3; J7030 ×2

== ENCOUNTER 2018-10-30 07:53 | Day surgery (SDC) | payer MEDICARE, BC ==
[2018-10-23 10:39] LABS: HEMATOCRIT 35.3 % (36.0-47.0); HEMOGLOBIN 12.1 g/dL (12.0-15.5); MEAN CORPUSCULAR HGB CONC 34.2 g/dL (32.0-36.0); MEAN CORPUSCULAR VOLUME 91 fl (80-97); PLATELET COUNT 217 10^3/uL (150-450); RED CELL DISTRIBUTION WIDTH 13.8 % (11.5-14.0); WHITE BLOOD COUNT 5.7 10^3/uL (4.0-10.5)
[2018-10-23 10:42] LABS: INTERNATIONAL RATION (INR) 0.84; PROTHROMBIN TIME 11.9 SEC (11.4-15.4)
[2018-10-23 10:43] LABS: PARTIAL THROMBOPLASTIN TIME 34.9 SEC (23.5-35.8)
[2018-10-23 11:07] LABS: ANION GAP 9 (5-19); BLOOD UREA NITROGEN 34 mg/dL (7-20); CALCIUM 10.4 mg/dL (8.4-10.2); CARBON DIOXIDE 31 mmol/L (22-30); CHLORIDE 103 mmol/L (98-107); GLUCOSE 94 mg/dL (75-110); POTASSIUM 4.3 mmol/L (3.6-5.0); SODIUM 143.2 mmol/L (137-145)
--- NOTE | 2018-10-23 13:54 | EKG REPORT ---
SEVERITY:- NORMAL ECG - SINUS RHYTHM : Confirmed by: Austin Lee MD 23-Oct-2018 13:53:12
[2018-10-30] MEDS ORDERED: CEFAZOLIN 1 GM/D5W RTU 1 GM/50 ML RTUPB IV PRN (08:05)
[2018-10-30] MEDS ORDERED: PROPOFOL INJ 200 MG/20 ML VIAL IV ONE (09:33)
[2018-10-30] MEDS ORDERED: MIDAZOLAM 2 MG/2 ML INJ ONE (09:33)
[2018-10-30] MEDS ORDERED: ONDANSETRON HCL INJ/PF 4 MG/2 ML SDV ONE (09:33)
[2018-10-30] MEDS ORDERED: POVIDONE-IODINE 5% OPH PREP SOLN 30 ML ONE (09:36)
[2018-10-30] MEDS ORDERED: SODIUM BICARBONATE 4.2% INJ (2.5 MEQ/5 ML) VIAL ONE (09:36)
[2018-10-30] MEDS ORDERED: LIDOCAINE 1%/EPINEPHRINE INJ 20 ML VIAL ONE (09:36)
[2018-10-30] MEDS ORDERED: FENTANYL CITRATE INJ/PF 100 MCG/2 ML AMPUL IV PRN ×3 (10:21)
--- NOTE | 2018-10-30 11:28 | Operative Report ---
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 Patient was brought into the operating room and placed on the operating room table in a supine position. Patient was then prepped with a Betadine scrub and Betadine solution and draped in a sterile and aseptic manner. The area was then marked. 12 O'clock was marked towards the nose 3 O'clock was marked towards the sideburn 6:00 was marked towards the ear 9:00 was marked towards the angle of the mandible The area was then anesthetized with 1% lidocaine with epinephrine and bicarbonate for its anesthetic and hemostatic effects. The area was then excised and marked at 12:00. The specimen was sent for frozen section. The results came back that the deep and lateral margins were free. We had considered a primary closure but this would go against the natural relaxed skin tension lines. A primary closure would be too tight and would have increased chance of dehiscence. This will leave more of a scar so we decided to use a esperanza-auricular crescent flap reconstruction which would camouflage the scar better and take tension off of the closure so that would be less chances of complications. It was felt that this flap would allow better camouflage along the region of the lobule. It would also disturb the lobule the least amount. Number also allow us to curve the reconstruction at the sideburn also for better camouflage. Then we went ahead and outlined the flap and anesthetized it. We then incised the flap and developed a flap maintaining the subdermal plexus. Then we undermined 360 to allow for plate like scarring and minimize trap door deformity. Throughout the case hemostasis was achieved with the bipolar. We then sutured the flap into its new position using 4-0 Vicryl for the subcutaneous and deep dermis. Skin was closed with a running subcuticular suture stitch using 4-0 PDS with knots being tied on the outside. And 4-0 PDS suture was used for support and placed in the central area of the incision. We then applied tincture benzoin and Steri-Strips followed by a light pressure dressing. Patient was then reversed from anesthesia and taken to the [facility] for recovery. The patient tolerated well. There were no complications. Lesion size was approximately 1.6 cm please see pathology for actual size. Portions of this note may be dictated using [employer] voice recognition software. Occasional variations and spelling and vocabulary could be possible and are unintentional. Additionally, there is a chance that some errors may not be caught or corrected. Please notify the author of any discrepancies noted or if any statements are unclear. Subjective: No complaints Objective: Vital signs stable afebrile No bleeding Dressing intact Assessment and plan: Doing well. Elevate the operative site. Resume medications. Take antibiotics for 1 day Follow-up Full instructions were given to the patient and family and they understand Portions of this note may be dictated using [employer] voice recognition software. Occasional variations and spelling and vocabulary could be possible and are unintentional. Additionally, there is a chance that some errors may not be caught or corrected. Please notify the offer of any discrepancies noted or if any statements are unclear.
--- NOTE | 2018-10-30 11:30 | Discharge Summary ---
Discharge Summary (SDC) - Discharge Final Diagnosis: Squamous cell carcinoma of the pretragal area Date of Surgery: 10/30/18 Condition: Good Treatment or Instructions: Leave the top dressing on for 2 days, then removed. Leave the steri-strip tapes on for 5 days, then removal. Then cleaning wound with peroxide and apply Neosporin/bacitracin 3 times per day. Antibiotics for 1 day, then discontinue. Elevate operative area to decrease swelling. Do not strain, or lift heavy objects. Call for excessive bleeding, increased temperature of 101, uncontrolled pain, or excessive nausea or vomiting. You may reach Dr. Elizabeth through his office at [phone]. In the event of an emergency after hours, then contact Dr. Elizabeth through [facility]. Return to the office for a postop check on . The time will be scheduled by the nursing staff of [facility] prior to discharge. Please give the patient a copy of their labs and EKG so they can bring this to their PMD. Thank you Portions of this note may be dictated using [employer] voice recognition software. Occasional variations and spelling and vocabulary could be possible and are unintentional. Additionally, there is a chance that some errors may not be caught or corrected. Please notify the offer of any discrepancies noted or if any statements are unclear. Referrals: ARIANNA SUAREZ MD [Primary Care Provider] - Discharge Diet: As Tolerated Discharge Activity: No Lifting/Push/Pulling Report the Following to Your Physician Immediately: Unusual Bleeding - Keep head elevated. No bending or straining.
[2018-10-30 13:05] VITALS: BP 147/67
== END 2018-10-30 12:35 | disposition home or self-care (01) ==
LOC: OROUT 07:53
PROVIDERS: ATTEND Plastic Surgery
DX: C44.229 Squamous cell carcinoma of skin of left ear and external auricular canal (principal); Z79.01 Long term (current) use of anticoagulants; Z79.899 Other long term (current) drug therapy; I25.2 Old myocardial infarction; I10 Essential (primary) hypertension; G47.33 Obstructive sleep apnea (adult) (pediatric)
CPT/HCPCS: 93005; 36415 ×2; 84132; 85027; 85610; 85730; 80048; 88305 ×2; 88331 ×2; 93010; 00300; 14060; J2250; J3490 ×3; J2405; J2704; 300; 88307